=== PATIENT | female | born 1985 | race Hispanic/Latino ===

== ENCOUNTER 2018-08-21 14:50 | Emergency (ER) | payer OTHER ==
[2018-08-21 15:46] LABS: Basophils % (Auto) 0.3 % (0.0-1.8); Eosinophils # (Auto) 0.1 K/mm3 (0.0-0.4); Eosinophils % (Auto) 0.8 % (0.0-4.3); Hemoglobin 13.4 gm/dl (10.1-14.3); Lymphocytes # (Auto) 2.1 K/mm3 (1.2-5.4); Lymphocytes % (Auto) 20.5 % (13.4-35.0); Mean Corpuscular HGB Conc 33 % (30-34); Mean Corpuscular Volume 89 fl (79-97); Monocytes # (Auto) 0.6 K/mm3 (0.0-0.8); Monocytes % (Auto) 5.6 % (0.0-7.3); Platelet Count 305 K/mm3 (140-440); Red Blood Count 4.51 M/mm3 (3.65-5.03); Red Cell Distribution Width 14.3 % (13.2-15.2)
[2018-08-21 16:11] LABS: BUN/Creatinine Ratio 17; Blood Urea Nitrogen 17 mg/dL (7-17); Hemolysis Index 4
[2018-08-21] MEDS ORDERED: NACL 0.9% 1000 ML 1,000 ML IV ONE (17:28)
--- NOTE | 2018-08-21 18:52 | Emergency Department Report ---
- General Chief complaint: Dizziness Stated complaint: WEAKNESS,NEAR SYNCOPE Time Seen by Provider: 08/21/18 15:48 Source: patient, EMS Mode of arrival: Stretcher Limitations: No Limitations - History of Present Illness Initial comments: Ms. Riley is a healthy 33-year-old female without significant past medical history who presents with dizziness and syncope today. She has not been eating a regular basis. She is currently living with friends without a refrigerator. She has been eating sporadically. She went to the store today in order to purchase food. She has groceries at the bedside. While in the store she had a near syncopal episode. EMS discovered not hypotension. She denies chest pain. She has mild headache. Headaches are typical for her. Denies abdominal pain. History of tubal ligation. She also uses marijuana daily. She does smoke marijuana this morning. MD Complaint: generalized weakness -: Gradual, days(s) (1) Location: generalized Severity: mild Consistency: constant Improves with: rest Worsens with: none Associated Symptoms: headaches - Related Data Allergies Allergy/AdvReac Type Severity Reaction Status Date / Time No Known Allergies Allergy Unverified 08/21/18 15:05 ED Review of Systems ROS: Stated complaint: WEAKNESS,NEAR SYNCOPE Other details as noted in HPI Comment: All other systems reviewed and negative Constitutional: malaise. denies: fever Cardiovascular: denies: chest pain, palpitations Gastrointestinal: denies: abdominal pain Neurological: headache ED Past Medical Hx - Past Medical History Previous Medical History?: Yes Hx Headaches / Migraines: Yes - Surgical History Past Surgical History?: No - Social History Smoking Status: Current Every Day Smoker Substance Use Type: Marijuana ED Physical Exam - General Limitations: No Limitations General appearance: alert, in no apparent distress - Head Head exam: Present: atraumatic, normocephalic - Eye Eye exam: Present: normal appearance - ENT ENT exam: Present: mucous membranes moist - Neck Neck exam: Present: normal inspection, full ROM - Respiratory Respiratory exam: Present: normal lung sounds bilaterally. Absent: respiratory distress, wheezes, rales, rhonchi, stridor - Cardiovascular Cardiovascular Exam: Present: regular rate, normal rhythm, normal heart sounds. Absent: systolic murmur, diastolic murmur, rubs, gallop - GI/Abdominal GI/Abdominal exam: Present: soft, normal bowel sounds. Absent: distended, tenderness, guarding, rebound - Extremities Exam Extremities exam: Present: normal inspection - Back Exam Back exam: Present: normal inspection - Neurological Exam Neurological exam: Present: alert, oriented X3 - Psychiatric Psychiatric exam: Present: normal affect, normal mood - Skin Skin exam: Present: warm, dry, intact, normal color. Absent: rash ED Course Vital Signs 08/21/18 08/21/18 08/21/18 15:00 15:06 15:15 Temperature 97.7 F Pulse Rate 76 76 80 Respiratory 13 14 19 Rate Blood Pressure 102/65 94/62 O2 Sat by Pulse 97 95 96 Oximetry 08/21/18 08/21/18 08/21/18 15:30 15:45 16:01 Temperature Pulse Rate 74 68 81 Respiratory 15 19 13 Rate Blood Pressure 82/46 81/48 103/73 O2 Sat by Pulse 99 99 100 Oximetry 08/21/18 08/21/18 08/21/18 16:15 16:30 16:45 Temperature Pulse Rate 80 79 83 Respiratory 18 13 14 Rate Blood Pressure 107/65 103/63 104/72 O2 Sat by Pulse 99 98 Oximetry 08/21/18 08/21/18 08/21/18 17:01 17:15 17:30 Temperature Pulse Rate 70 74 73 Respiratory 18 17 19 Rate Blood Pressure 86/44 81/48 95/56 O2 Sat by Pulse 97 98 98 Oximetry 08/21/18 08/21/18 08/21/18 17:45 18:00 18:15 Temperature Pulse Rate 82 81 76 Respiratory 18 17 22 Rate Blood Pressure 89/49 108/70 92/51 O2 Sat by Pulse 97 98 98 Oximetry ED Medical Decision Making - Lab Data Result diagrams: 08/21/18 15:18 08/21/18 15:18 Laboratory Results - last 24 hr 08/21/18 08/21/18 15:18 15:18 WBC 10.2 RBC 4.51 Hgb 13.4 Hct 40.0 MCV 89 MCH 30 MCHC 33 RDW 14.3 Plt Count 305 Lymph % (Auto) 20.5 [place] % (Auto) 5.6 Eos % (Auto) 0.8 Baso % (Auto) 0.3 Lymph # 2.1 [place] # 0.6 Eos # 0.1 Baso # 0.0 Seg Neutrophils % 72.8 H Seg Neutrophils # 7.4 Sodium 141 Potassium 5.0 Chloride 104.3 Carbon Dioxide 25 Anion Gap 17 BUN 17 Creatinine 1.0 Estimated GFR > 60 BUN/Creatinine Ratio 17 Glucose 103 H Calcium 9.0 - Medical Decision Making Ms. Riley presents with near syncope and hypotension. No evidence of pulmonary embolism, sepsis, acute coronary syndrome. CBC chemistry within normal limits. She felt better after eating and receiving IV fluid therapy. Suspect dehydration and marijuana abuse as the cause of her presentation. Critical care attestation.: If time is entered above; I have spent that time in minutes in the direct care of this critically ill patient, excluding procedure time. ED Disposition Clinical Impression: Dehydration, Marijuana abuse, Near syncope Disposition: PAT REG,NO TRIAGE Is pt being admited?: No Does the pt Need Aspirin: No Condition: Stable Instructions: Dehydration (ED), Near Syncope (ED) Referrals: WILFRIDO SAWYER MD [Primary Care Provider] - 3-5 Days
[2018-08-21 19:00] VITALS: BP 99/58
== END 2018-08-21 19:00 | disposition left against medical advice (07) ==
LOC: ED 14:50
DX: E86.0 Dehydration (principal); G43.909 Migraine, unspecified, not intractable, without status migrainosus; F12.10 Cannabis abuse, uncomplicated; F17.200 Nicotine dependence, unspecified, uncomplicated
CPT/HCPCS: 36415; 80048; 85025; 96360; 99283; J7030